=== PATIENT | female | born 1965 | race Caucasian/White ===

== ENCOUNTER → 2018-11-19 13:07 | Outpatient (CLI) | payer OTHER, SELFPAY ==
--- NOTE | 2018-11-19 13:10 | DI.MG.S_ITS ---
BILATERAL DIGITAL DIAGNOSTIC MAMMOGRAM 3D/2D: 11/19/2018 CLINICAL: Left breast lump. Comparison is made to exams dated: 02/05/2015 mammogram, 03/08/2016 mammogram, and 10/24/2017 mammogram - [facility]. The tissue of both breasts is extremely dense, which lowers the sensitivity of mammography. There is an irregular 5 mm asymmetry with a spiculated margin in the left breast at 1 o'clock posterior depth. This is seen in additional views, but not well seen on the CC view. This is more prominent and correlates as palpated. No other significant masses, calcifications, or other findings are seen in either breast. IMPRESSION: INCOMPLETE: NEEDS ADDITIONAL IMAGING EVALUATION The 5 mm irregular asymmetry in the left breast is indeterminate. An ultrasound is recommended. The patient could not stay for her scheduled ultrasound appointment immediately following the mammogram. This should be scheduled for the patient as soon as possible. The patient is aware of this recommendation. This exam was interpreted at Station ID: [id number]. NOTE: For mammograms, a report in lay terms will be sent to the patient. Approximately 15% of breast malignancies will not be visualized mammographically. In the management of a palpable breast mass, a negative mammogram must not discourage biopsy of a clinically suspicious lesion. Electronically Signed By: Lily bernal/:11/20/2018 12:17:50 letter sent: Need Ultrasound ACR BI-RADS Category 0: Incomplete 3340F
== END ==
PROVIDERS: PCP Nurse Practitioner; Visit Provider Nurse Practitioner
DX: N63.20 Unspecified lump in the left breast, unspecified quadrant (principal)
CPT/HCPCS: 77066; G0279

== ENCOUNTER → 2018-11-22 13:08 | Outpatient (CLI) | payer OTHER, SELFPAY ==
--- NOTE | 2018-11-22 13:09 | DI.US.S_ITS ---
LIMITED ULTRASOUND OF LEFT BREAST AND AXILLA: 11/22/2018 CLINICAL: Palpable left breast lump. w/ mammo abn. Comparison is made to exams dated: 11/19/2018 mammogram - [facility], 10/24/2017 mammogram, 03/08/2016 mammogram, and 02/05/2015 mammogram - [facility]. Color flow and real-time ultrasound of the left breast 1 o'clock, and axilla regions were performed. Hightower scale images of the real-time examination were reviewed. There is a 0.6 x 0.5 x 0.5 cm oval indistinct hypoechoic mass in the left breast at 1:00 position 7 cm from the nipple which demonstrates peripheral vascularity on Doppler imaging. This correlates with the patient's identified focal palpable abnormality and with findings seen on comparison diagnostic mammography. There is an adjacent 1.1 cm lymph node demonstrating borderline cortical thickening of 3 mm. No other axillary lymph nodes are identified. IMPRESSION: SUSPICIOUS OF MALIGNANCY 1) 0.6 x 0.5 x 0.5 cm oval indistinct hypoechoic mass in the left breast at 1:00 position 7 cm from the nipple correlates with the patient's identified focal palpable abnormality and is at moderate suspicion for malignancy. An ultrasound guided biopsy is recommended. 1) Adjacent 1.1 cm lymph node in the left breast at 1:00 position 7 cm from the nipple demonstrating borderline cortical thickening of 3 mm is at low suspicion for malignancy. An ultrasound guided biopsy is recommended. These results and recommendations were discussed with the patient at the time of the exam by Dr. Carrera in person. This exam was interpreted at Station ID: [id number]. Electronically Signed By: Omar Carrera M.D. ecl/:11/22/2018 14:23:17 letter sent: Biopsy Required Ultrasound BI-RADS: 4c Suspicious abnormality - moderate concern but not classic for malignancy
== END ==
PROVIDERS: PCP Nurse Practitioner; Visit Provider Nurse Practitioner
DX: R92.8 Other abnormal and inconclusive findings on diagnostic imaging of breast (principal); N63.21 Unspecified lump in the left breast, upper outer quadrant
CPT/HCPCS: 76642

== ENCOUNTER → 2018-12-05 07:38 | Outpatient (CLI) | payer OTHER, SELFPAY ==
--- NOTE | 2018-12-05 | PATH_ITS ---
[facility] Accession Number: [id number] . 01 Material submitted: . breast - LEFT BREAST MASS 1:00 7 CM FN . 01 Clinical history: . LEFT BREAST MASS . 01 Diagnosis: Left Breast Mass, 1 o'clock, 7 cm from Nipple, Core Biopsy: Invasive carcinoma, with ductal and lobular features, grade 2 of 3 ([place] combined histologic grade, total score 7/9) with the following features: - Nuclear pleomorphism: High. (3/3) - Mitotic rate: Low (1/3); see comment. - Tubular differentiation: Little or none. (3/3) - Size of invasive carcinoma: Present on multiple cores, single largest dimension of 2 mm. - Ductal carcinoma in situ: None definitively identified. - Lobular carcinoma in situ with pleomorphic features is present. - Calcifications: Present, in association with benign breast parenchyma. - Lymphatic invasion: Not definitively identified. - Prognostic markers: - Estrogen receptor status: Positive (>90% tumor cells staining; staining intensity: Moderate to Strong). - Progesterone receptor status: Positive (>95% tumor cells staining; staining intensity: Strong). - HER-2 status: Negative for protein overexpression by immunohistochemistry (1+). [facility] 12/09/2018 1825 Local . 01 Comment: The invasive carcinoma is poorly differentiated and demonstrates single cells and filing with eccentric enlarged nuclei, pleomorphism, cytoplasmic vacuolization, and prominent nucleoli. These features raise the possibility of pleomorphic invasive lobular carcinoma; however, given the focal ductular formation, the limited volume of tumor, and the focal E-cadherin immunoreactivity, the carcinoma is best interpreted as having both ductal and lobular features. The grade is at least [place] grade 2 of 3, since the limited number of high-power wayne available precludes accurate mitotic count. Better grading and classification may be performed on the excision. . 01 Electronically signed: . Iman Guzman MD, Pathologist NPI- [id number] . 01 Gross description: . Received one formalin-filled container labeled with the patient's name and labeled LT breast BX. The specimen is received with a plastic filter in container, sample loose in container and consists of multiple yellow-sanchez portions of soft tissue which range in size from 0.1 x 0.1 x 0.1 cm to 0.6 x 0.5 x 0.4 cm. The specimen is filtered and entirely submitted in one cassette. Collection date: 12/05/2018. Collection time per container: 8:45 a.m. Total fixation time: 12 hours, up to 24. ([id number]) /[facility] 12/06/2018 0311 Local . 01 Microscopic: . Predictive marker immunohistochemical studies are performed on block A1 with the invasive carcinoma showing the following results: Estrogen receptor (SP1): Positive (>90% tumor cells staining; staining intensity: Moderate to Strong). Progesterone receptor (1E2): Positive (>95% tumor cells staining; staining intensity: Strong) Her2 (4B5): Negative (1+) by immunohistochemistry. . Focal areas suspicious for lymphovascular space invasion are evaluated with D2-40 and p63 immunostains, the atypical glands of interest are not present within spaces highlighted by D2-40; hence, there is no histologic evidence of lymphatic space invasion. P63 is variably and focally weakly positive within the invasive carcinoma cells. P63 and smooth muscle myosin are lost around the invasive carcinoma, and are retained around the in-situ neoplasia. . The invasive carcinoma shows marked reduction in E-cadherin immunoreactivity; while focal membranous staining is 'beaded/dot-like' and incomplete (hence considered aberrant), in other areas, specifically where focal duct formation is present, it is linear with moderate staining intensity; hence, taken together along with the morphology of focal duct formation, the invsaive carcinoma has both ductular and lobular features. The in-situ neoplasia, which is predominantly in a pagetoid pattern, shows complete loss of E-cadherin, in support of lobular carcinoma in situ. . Internal controls for ER and OR are positive. Internal controls for ER and OR are negative; false negative results cannot be excluded. Internal controls for ER and OR are not present; false negative results cannot be excluded. Cold ischemic time is <5 minutes. The scoring criteria for breast biomarkers by immunohistochemistry is based on the ASCO/CAP guidelines (Ash AC et al J Clin Oncol 2018: 2017 10;36(20):1198-4984 and Ventura ALEX et al, Arch Pathol Lab Med 2009;134(6):907-22). Deparaffinized sections of formalin fixed tissue (along with appropriate positive controls) are incubated with the above antibody(s). Using the automated [employer] stainer, tissue is incubated with the designated antibody which is then localized by a non-biotin, dual polymer detection system. The external controls are reviewed for appropriate reactivity and found to be adequate. Results on the target cell population are indicated above. These tests have not been validated on decalcified tissue. This test was developed and its performance characteristics determined by [facility]. It has not been cleared or approved by the U.S. Food and Drug Administration. The FDA has determined that such clearance or approval is not necessary. This test is used for clinical purposes. It should not be regarded as investigational or for research. . 01 Pathologist provided ICD-10: C50.412 . 01 CPT . 154968, Q29158, W64269, 861001, 651724, 596294 Performed at: 01 [facility] [address] [place] [address] [address] [facility] [place], [place], [place] [id number] MD Russell Nguyen MD Phone: [phone]
--- NOTE | 2018-12-05 | DI.MG.S_ITS ---
UNILATERAL LEFT DIGITAL DIAGNOSTIC MAMMOGRAM POST-NEEDLE BIOPSY: 12/05/2018 CLINICAL: Left breast mass. No prior exams were available for comparison. The tissue of left breast is extremely dense, which lowers the sensitivity of mammography. There is a marker clip in the appropriate position in the left breast at 1 o'clock posterior depth. This marker clip placement is at the biopsy site. IMPRESSION: POST PROCEDURE MAMMOGRAM FOR MARKER PLACEMENT There was a successful marker clip placement in the left breast posterior depth. This exam was interpreted at Station ID: [id number]. NOTE: For mammograms, a report in lay terms will be sent to the patient. Approximately 15% of breast malignancies will not be visualized mammographically. In the management of a palpable breast mass, a negative mammogram must not discourage biopsy of a clinically suspicious lesion. Electronically Signed By: Yaw jeong/:12/05/2018 17:22:38 ACR BI-RADS Category Post-procedure mammogram for marker placement
--- NOTE | 2018-12-05 07:39 | DI.US.S_ITS ---
ULTRASOUND GUIDED BIOPSY LEFT BREAST USING VACUUM DEVICE WITH MARKING DEVICE INSERTED: 12/05/2018 CLINICAL: Left breast mass. PATIENT CONSENT: Risks (minor bleeding, infection, vasovagal reaction and repeat procedure), benefits and alternatives were explained to the patient and written informed consent was obtained. Correlation is made to exams dated: 12/05/2018 mammogram, 11/22/2018 ultrasound, 11/19/2018 mammogram - [facility], 10/24/2017 mammogram, 03/08/2016 mammogram, and 02/05/2015 mammogram - [facility]. An ultrasound guided biopsy using real-time ultrasound was performed for the indistinct irregular shaped mass located in the left breast at 1 o'clock anterior depth. The skin was prepped in the usual manner. Local anesthetic was administered to the access site. A small incision was made in the breast. The abnormality was approached from the lateral aspect. A biopsy needle was placed adjacent to the abnormality under ultrasound guidance. Once the needle was documented to be in the correct location, seven specimens were obtained using the Mammotome biopsy system. A clip was inserted into the biopsy cavity. The specimens were sent to the laboratory for pathological analysis. IMPRESSION: ULTRASOUND GUIDED BIOPSY MALIGNANT Ultrasound guided biopsy of the mass in the left breast at 1 o'clock anterior depth was successful. Pathology indicates malignant invasive mixed ductal and lobular carcinoma. Pathology results are concordant with imaging findings. A surgical/oncologic consultation is recommended. Results will be communicated to the referring clinician. This exam was interpreted at Station ID: [id number]. Yaw jeong,krmagali/:12/10/2018 21:05:10
--- NOTE | 2018-12-24 12:23 | ONC.MSW ---
Description: Initial Navigation T/C Activity: Called pt to introduce myself as the TRASHMAN/PASCALE, discuss support and resources available, as well as the process from diagnosis to initial Oncology consult visit. Pt has an appointment on Sunday, 12/30 for MRI, and has already met with Dr. Oliva. Will forward to schedulers to schedule first available ONC consult time.
== END ==
PROVIDERS: PCP Nurse Practitioner; Visit Provider Nurse Practitioner
DX: C50.412 Malignant neoplasm of upper-outer quadrant of left female breast (principal); Z17.0 Estrogen receptor positive status [ER+]
CPT/HCPCS: 19083; 77065

== ENCOUNTER → 2019-06-16 15:28 | Outpatient (CLI) | payer OTHER, SELFPAY ==
--- NOTE | 2019-06-16 15:30 | DI.RAD.S_ITS ---
PROCEDURE: XR CHEST 2V INDICATIONS: cough x5-6 wks, worsening post zpack, r/o infection TECHNIQUE: 2 views of the chest were acquired. COMPARISON: None. FINDINGS: Surgical changes and devices: None. Lungs and pleura: A large area of pulmonary consolidation is identified within the lateral aspect of the left mid lung. The aeration of the right lung is within normal limits. No effusion or pneumothorax. Mediastinum: Mediastinal contours are normal. Heart size is normal. Bones and chest wall: No suspicious bony abnormalities. Soft tissues appear unremarkable. IMPRESSION: Moderate to large left sided pneumonia. Dictated by: Osiel Chong M.D. on 06/16/2019 at 14:56 Approved by: Osiel Chong M.D. on 06/16/2019 at 15:01
== END ==
PROVIDERS: PCP Nurse Practitioner; Referring Provider Physician Assistant; Visit Provider Physician Assistant
DX: J18.9 Pneumonia, unspecified organism (principal); R05 Cough
CPT/HCPCS: 71046

== ENCOUNTER → 2019-07-14 14:31 | Outpatient (CLI) | payer OTHER, SELFPAY ==
--- NOTE | 2019-07-14 14:33 | DI.RAD.S_ITS ---
PROCEDURE: XR CHEST 2V INDICATIONS: f/u pneumonia, still sob TECHNIQUE: 2 views of the chest were acquired. COMPARISON: [facility], CR, XR CHEST 2V, 06/16/2019, 15:25. FINDINGS: Surgical changes and devices: None. Lungs and pleura: Left basilar consolidation, and small left pleural effusion with adjacent atelectasis. Worsening left perihilar consolidation. There is also new extensive right midlung consolidative opacity since the prior study No pneumothorax. Mediastinum: Mediastinal contours are normal. Heart size is normal. Bones and chest wall: No suspicious bony abnormalities. Soft tissues appear unremarkable. IMPRESSION: Worsening bilateral pneumonia, and small left pleural effusion since 06/16/19. Dictated by: Yaw Casper M.D. on 07/14/2019 at 15:08 Approved by: Yaw Casper M.D. on 07/14/2019 at 15:10
== END ==
PROVIDERS: PCP Nurse Practitioner; Referring Provider Nurse Practitioner; Visit Provider Nurse Practitioner
DX: J18.9 Pneumonia, unspecified organism (principal); J90 Pleural effusion, not elsewhere classified; R06.02 Shortness of breath
CPT/HCPCS: 71046

== ENCOUNTER → 2019-07-16 09:27 | Outpatient (CLI) | payer OTHER, SELFPAY ==
[2019-07-18 09:03] LABS: COVID19 Sendout Not Detected (Not Detected)
== END ==
PROVIDERS: PCP Nurse Practitioner; Visit Provider Family Medicine
DX: J18.9 Pneumonia, unspecified organism (principal)
CPT/HCPCS: 87635

== ENCOUNTER → 2019-07-18 13:19 | Outpatient (CLI) | payer OTHER, SELFPAY ==
--- NOTE | 2019-07-18 13:20 | DI.CT.S_ITS ---
PROCEDURE: CT CHEST WO CON INDICATIONS: worsening pneumonia. R/O mets TECHNIQUE: Noncontrast 5 mm thick sections acquired from the pulmonary apices to the posterior costophrenic angles. 1 mm lung window, 5 mm thick coronal and sagittal and 7 mm axial MIP reformats were then acquired. For radiation dose reduction, the following was used: automated exposure control, adjustment of mA and/or kV according to patient size. COMPARISON: None. FINDINGS: Image quality: Excellent. Lungs and pleura: Extensive bilateral patchy interstitial pneumonitis and more confluent airspace consolidation. Consider viral versus bacterial pneumonia. There is postradiation change in the anterior left upper lobe subjacent to the left breast. No pulmonary nodules identified. Minimal bilateral pleural effusions. Central and peripheral airways are patent and normal in caliber. Mediastinum: Heart size is normal. No pericardial effusion. No mediastinal adenopathy by size criteria. Thoracic aorta and central pulmonary arteries are normal in size. Esophagus is normal in caliber. No hiatal hernia. Bones and chest wall: No suspicious bony lesions. No acute vertebral body compression fractures. Old mild mid thoracic vertebral compression. No axillary or supraclavicular adenopathy by size criteria. Evidence of previous left breast lumpectomy. Remote left axillary node resection. Thyroid gland is unremarkable. Abdomen: Visualized upper abdominal solid organs and bowel loops appear normal in the absence of contrast. IMPRESSION: 1. Remote left lobectomy. No evidence of metastatic disease. 2. Patchy diffuse interstitial pneumonitis and patchy alveolar consolidation bilaterally. Consider viral versus bacterial pneumonia. Dictated by: Angel Ruelas M.D. on 07/18/2019 at 13:38 Approved by: Angel Ruelas M.D. on 07/18/2019 at 13:43
== END ==
PROVIDERS: PCP Nurse Practitioner; Referring Provider Internal Medicine Hematology & Oncology; Visit Provider Internal Medicine Hematology & Oncology
DX: J18.9 Pneumonia, unspecified organism (principal); C50.912 Malignant neoplasm of unspecified site of left female breast; N63.10 Unspecified lump in the right breast, unspecified quadrant
CPT/HCPCS: 71250

== ENCOUNTER → 2020-01-23 16:01 | Outpatient (CLI) | payer OTHER, SELFPAY | PROVIDERS: PCP Nurse Practitioner; Visit Provider Physician Assistant | DX: R30.0 Dysuria (principal) | CPT/HCPCS: 87077; 87086 ==

== ENCOUNTER → 2020-09-24 11:01 | Outpatient (CLI) | payer OTHER, SELFPAY ==
--- NOTE | 2020-09-24 11:02 | DI.MG.S_ITS ---
BILATERAL DIGITAL SCREENING MAMMOGRAM 3D/2D WITH CAD: 09/24/2020 CLINICAL: Routine screening. Personal history of left breast cancer. Family history of breast cancer. Comparison is made to exams dated: 10/13/2019 mammogram, 01/28/[address] mammogram - [facility], and 11/19/2018 mammogram - [facility]. The tissue of both breasts is extremely dense, which lowers the sensitivity of mammography. Current study was also evaluated with a Computer Aided Detection (CAD) system. There are benign post operative findings in the left breast. No significant masses, calcifications, or other findings are seen in either breast. There has been no significant interval change. IMPRESSION: BENIGN There is no mammographic evidence of malignancy. A 1 year screening mammogram is recommended. This exam was interpreted at Station ID: [id number]. NOTE: For mammograms, a report in lay terms will be sent to the patient. Approximately 15% of breast malignancies will not be visualized mammographically. In the management of a palpable breast mass, a negative mammogram must not discourage biopsy of a clinically suspicious lesion. Electronically Signed By: Russell redmond/alec:09/24/2020 12:07:17 letter sent: Normal Exam ACR BI-RADS Category 2: Benign Finding(s) 3342F
== END ==
PROVIDERS: PCP Nurse Practitioner; Referring Provider Nurse Practitioner; Visit Provider Nurse Practitioner
DX: Z12.31 Encounter for screening mammogram for malignant neoplasm of breast (principal); Z85.3 Personal history of malignant neoplasm of breast; Z80.3 Family history of malignant neoplasm of breast
CPT/HCPCS: 77063; 77067

== ENCOUNTER → 2021-09-28 10:09 | Outpatient (CLI) | payer OTHER, SELFPAY ==
--- NOTE | 2021-09-28 10:10 | DI.MG.S_ITS ---
BILATERAL DIGITAL SCREENING MAMMOGRAM 3D/2D WITH CAD: 09/28/2021 CLINICAL: Routine screening. Routine screening. Personal history of left breast cancer. Family history of breast cancer. Comparison is made to exams dated: 09/24/[address] [facility], 10/13/2019 mammogram, 01/28/2019 mammogram - [facility], 11/19/2018 mammogram - [facility], and 10/24/2017 mammogram - [facility]. The tissue of both breasts is extremely dense, which lowers the sensitivity of mammography. Current study was also evaluated with a Computer Aided Detection (CAD) system. There are benign post operative findings in the left breast. No significant masses, calcifications, or other findings are seen in either breast. There has been no significant interval change. IMPRESSION: BENIGN There is no mammographic evidence of malignancy. A 1 year screening mammogram is recommended. This exam was interpreted at Station ID: [id number]. NOTE: For mammograms, a report in lay terms will be sent to the patient. Approximately 15% of breast malignancies will not be visualized mammographically. In the management of a palpable breast mass, a negative mammogram must not discourage biopsy of a clinically suspicious lesion. Electronically Signed By: Ja layton/alec:09/28/2021 12:43:27 letter sent: Normal Exam ACR BI-RADS Category 2: Benign Finding(s) 3342F
== END ==
PROVIDERS: PCP Nurse Practitioner; Referring Provider Internal Medicine Hematology & Oncology; Visit Provider Internal Medicine Hematology & Oncology
DX: Z12.31 Encounter for screening mammogram for malignant neoplasm of breast (principal); Z80.3 Family history of malignant neoplasm of breast; C50.412 Malignant neoplasm of upper-outer quadrant of left female breast
CPT/HCPCS: 77063; 77067

== ENCOUNTER → 2022-06-16 10:24 | Outpatient (CLI) | payer OTHER, SELFPAY ==
--- NOTE | 2022-06-16 10:51 | DI.DEXA.S_ITS ---
Date of : 1965 Indication: postmenopausal; screening for osteoporosis; Referring Provider: MARIO KHAN Study: Bone densitometry was performed. Exam Date: June 16, 2022 Accession number: [id number] Bone Density: Region BMD T-score Z-score Classification AP Spine(L1-L4) 0.718 -3.0 -1.8 Osteoporosis Femoral Neck (Left) 0.720 -1.2 0.0 Osteopenia Total Hip (Left) 0.790 -1.2 -0.5 Osteopenia Femoral Neck (Right) 0.662 -1.7 -0.5 Osteopenia Total Hip (Right) 0.753 -1.5 -0.8 Osteopenia Total Hip Mean 0.772 -1.4 -0.7 Osteopenia World Health Organization criteria for BMD impression classify patients as: Normal (T-score at or above -1.0), Osteopenia (T-score between -1.0 and -2.5), or Osteoporosis (T-score at or below -2.5). 10-year Fracture Risk: FRAX not reported because: Some T-score for Spine Total or Hip Total or Femoral Neck at or below -2.5 Impression: The patient has osteoporosis, based on the Total Spine T-score. Discussion: INCREASED RISK OF FRACTURE. BONE DENSITY IS UNDESIRABLY LOW AT ONE OR MORE SKELETAL SITES, CONSISTENT WITH POSTMENOPAUSAL OSTEOPOROSIS. This patient's lowest T-score meets the World Health Organization's (WHO) criteria for osteoporosis at one or more sites (T-score -2.5 or below). In untreated patients, the risk of osteoporotic fracture increases approximately two-fold for each 1.0 SD decrease in T-score. Low bone density is not the only risk factor for fracture; also consider factors such as patient's age, frailty or poor health, risk of falling, risk of injury, previous osteoporotic fracture, family history of osteoporosis, cigarette smoking, low body weight, etc. Not everyone with low bone mineral density has osteoporosis; osteomalacia and other metabolic bone disorders should also be considered. Patients who have osteoporosis should be evaluated for specific diseases and conditions (secondary causes) that may cause or contribute to bone loss. The [place] [employer] Clinical Endocrinologists (AACE) and National Osteoporosis Foundation (NOF) recommend pharmacologic intervention for all postmenopausal women whose T-score is in this range. The patient should follow a healthful lifestyle (good nutrition with adequate calcium and vitamin D, and appropriate weight-bearing exercise). Follow-Up: Consider a repeat BMD and Vertebral Fracture Assessment (VFA) exam in 2 years or sooner if medically necessary, to reassess this patient's status. Reported by: CURTIS HU M.D. on 06/16/2022 11:06:00 AM.
== END ==
PROVIDERS: PCP Nurse Practitioner; Referring Provider Internal Medicine Hematology & Oncology; Visit Provider Internal Medicine Hematology & Oncology
DX: C50.919 Malignant neoplasm of unspecified site of unspecified female breast (principal); Z79.811 Long term (current) use of aromatase inhibitors; M85.88 Other specified disorders of bone density and structure, other site
CPT/HCPCS: 77080

== ENCOUNTER → 2022-09-11 10:15 | Outpatient (CLI) | payer OTHER, SELFPAY ==
--- NOTE | 2022-09-11 10:16 | DI.RAD.S_ITS ---
PROCEDURE: XR KNEE RT 3V INDICATIONS: right knee pain and crunching. TECHNIQUE: 3 views of the knee were acquired. COMPARISON: None. FINDINGS: Bones: No fractures or dislocations. No suspicious bony lesions. Soft tissues: No joint effusion. No suspicious soft tissue calcifications. IMPRESSION: Unremarkable right knee radiographs Approved by: Yaron Mullen M.D. on 09/11/2022 at 17:42
== END ==
PROVIDERS: PCP Nurse Practitioner; Referring Provider Nurse Practitioner; Visit Provider Nurse Practitioner
DX: M25.561 Pain in right knee (principal)
CPT/HCPCS: 73562

== ENCOUNTER → 2022-09-12 07:49 | Outpatient (CLI) | payer OTHER, SELFPAY ==
[2022-09-12 09:16] LABS: Add Manual Diff / Slide Review NO; Basophils Absolute Auto 0 /uL (0-100); Basophils Percent Auto 0.6 % (0-2); Eosinophils Absolute Auto 200 /uL (0-450); Eosinophils Percent Auto 2.7 % (2-4); Hemoglobin 13.7 g/dL (12.0-16.0); Lymphocytes Absolute Auto 2300 /uL (1100-4500); Lymphocytes Percent Auto 35.1 % (25-40); Mean Corpuscular HGB Conc 34.4 % (30-36); Mean Corpuscular Hemoglobin 31.5 PG (26-34); Mean Corpuscular Volume 91.8 fL (80-100); Monocytes Absolute Auto 600 /uL (0-900); Monocytes Percent Auto 8.5 % (3-14); Neutrophils Absolute Auto 3400 /uL (1500-7000); Neutrophils Percent Auto 53.1 % (50-75); Platelet Count 195 X10^3/uL (150-400); Red Blood Cell Count 4.36 X10^6/uL (4.0-5.2); Red Cell Distribution Width 12.5 % (11.6-14.8); White Blood Cell Count 6.5 X10^3/uL (4.5-11.0)
[2022-09-12 09:46] LABS: Alanine Aminotransferase 18 IU/L (<35); Albumin 4.2 g/dL (3.5-5.0); Albumin Globulin Ratio 1.7 (1.0-2.8); Alkaline Phosphatase 68 U/L (38-126); Aspartate Aminotransferase 29 IU/L (14-36); BUN Creatinine Ratio 20.8 (6-22); Bilirubin Total 0.9 mg/dL (0.2-1.3); Blood Urea Nitrogen 15 mg/dL (7-17); Calcium 9.2 mg/dL (8.4-10.2); Carbon Dioxide 25 mmol/L (22-32); Chloride 103 mmol/L (98-107); Cholesterol 172 mg/dL (140-199); Estimated Glomerular Filt Rate > 60 mL/min (>60); Globulin 2.5 g/dL (1.7-4.1); Glucose 88 mg/dL (70-100); HDL Cholesterol 62 mg/dL (40-60); HEMOLYSIS < 15 (0-50); LDL Cholesterol Calculated 93 mg/dL (<100); Potassium 4.3 mmol/L (3.4-5.1); Sodium 136 mmol/L (137-145); Total Protein 6.7 g/dL (6.3-8.2); Triglycerides 85 mg/dL (35-150)
[2022-09-12 09:59] LABS: Free T3, Triiodothyronine Free 4.21 pg/mL (2.77-5.27); Free T4, Direct Thyroxine 0.95 ng/dL (0.78-2.19)
[2022-09-12 10:13] LABS: Thyroid Stimulating Hormone 2.46 uIU/mL (0.47-4.68)
[2022-09-12 10:35] LABS: HIV 1 & 2 Ab/Ag 4th Gen Combo NEGATIVE (NEGATIVE); Hep C Virus Ab w/Reflex Quant NEGATIVE s/c (NEGATIVE)
[2022-09-12 12:20] LABS: Creatinine Urine Random 133.1 mg/dL
[2022-09-12 12:24] LABS: Microalbumi Creatinin Ratio Ur 5.2 ug/mg CR (<30); Microalbumin Urine Random 0.7 mg/dL (0-1.6)
[2022-09-14 16:07] LABS: Fecal Immunochemical Test Negative (Negative)
== END ==
PROVIDERS: PCP Nurse Practitioner; Referring Provider Nurse Practitioner; Visit Provider Nurse Practitioner
DX: Z00.00 Encounter for general adult medical examination without abnormal findings (principal); Z11.4 Encounter for screening for human immunodeficiency virus [HIV]; Z71.89 Other specified counseling; Z11.59 Encounter for screening for other viral diseases; Z12.11 Encounter for screening for malignant neoplasm of colon; N89.8 Other specified noninflammatory disorders of vagina
CPT/HCPCS: 36415; 80053; 80061; 82043; 82274; 82570; 84439; 84443; 84481; 85025; 86803; 87070; 87205; 87389

== ENCOUNTER → 2022-09-20 11:19 | Outpatient (CLI) | payer OTHER, SELFPAY ==
--- NOTE | 2022-09-20 11:20 | DI.MG.S_ITS ---
BILATERAL DIGITAL SCREENING MAMMOGRAM 3D/2D WITH CAD: 09/20/2022 CLINICAL: Routine screening. Personal history of left breast cancer. Family history of breast cancer. Comparison is made to exams dated: 09/28/2021 mammogram, 09/24/2020 mammogram - [facility], and 10/13/2019 mammogram - [facility]. Both breasts are extremely dense, which lowers the sensitivity of mammography (category d />75% glandular tissue). Current study was also evaluated with a Computer Aided Detection (CAD) system. There are benign post operative findings in the left breast. No significant masses, calcifications, or other findings are seen in either breast. There has been no significant interval change. IMPRESSION: BENIGN There is no mammographic evidence of malignancy. A 1 year screening mammogram is recommended. This exam was interpreted at Station ID: [id number]. NOTE: For mammograms, a report in lay terms will be sent to the patient. Approximately 15% of breast malignancies will not be visualized mammographically. In the management of a palpable breast mass, a negative mammogram must not discourage biopsy of a clinically suspicious lesion. Electronically Signed By: Surya winston/alec:09/20/2022 13:43:39 letter sent: Normal Exam ACR BI-RADS Category 2: Benign Finding(s) 3342F
== END ==
PROVIDERS: PCP Nurse Practitioner; Referring Provider Internal Medicine Hematology & Oncology; Visit Provider Internal Medicine Hematology & Oncology
DX: Z12.31 Encounter for screening mammogram for malignant neoplasm of breast (principal); Z85.3 Personal history of malignant neoplasm of breast; Z80.3 Family history of malignant neoplasm of breast
CPT/HCPCS: 77063; 77067

== ENCOUNTER → 2023-10-02 09:57 | Outpatient (CLI) | payer OTHER, SELFPAY ==
--- NOTE | 2023-10-02 09:58 | DI.MG.S_ITS ---
BILATERAL DIGITAL SCREENING MAMMOGRAM 3D/2D WITH CAD: 10/02/2023 CLINICAL: Routine screening. Family history of breast cancer.Breast cancer. Comparison is made to exams dated: 09/20/2022 mammogram, 09/28/2021 mammogram, and 09/24/2020 mammogram - [facility]. Both breasts are extremely dense, which lowers the sensitivity of mammography (category d />75% glandular tissue). Current study was also evaluated with a Computer Aided Detection (CAD) system. The left breast has post-operative findings. There is a possible developing oval equal density asymmetry in the left breast posterior depth lateral region seen on the craniocaudal view only. No other significant masses, calcifications, or other findings are seen in either breast. IMPRESSION: INCOMPLETE: NEEDS ADDITIONAL IMAGING EVALUATION The possible developing oval equal density asymmetry in the left breast is indeterminate. Additional views with possible ultrasound are recommended. This exam was interpreted at Station ID: [id number]. NOTE: For mammograms, a report in lay terms will be sent to the patient. Approximately 15% of breast malignancies will not be visualized mammographically. In the management of a palpable breast mass, a negative mammogram must not discourage biopsy of a clinically suspicious lesion. Electronically Signed By: Jr Singh M.D. aty/:10/02/2023 13:53:09 letter sent: Additional Imaging Needed ACR BI-RADS Category 0: Incomplete 3340F
== END ==
PROVIDERS: PCP Family Medicine; Referring Provider Family Medicine; Visit Provider Family Medicine
DX: Z12.31 Encounter for screening mammogram for malignant neoplasm of breast (principal); Z85.3 Personal history of malignant neoplasm of breast; Z80.3 Family history of malignant neoplasm of breast; R92.343 Mammographic extreme density, bilateral breasts
CPT/HCPCS: 77063; 77067

== ENCOUNTER → 2023-10-16 09:26 | Outpatient (CLI) | payer OTHER, SELFPAY ==
--- NOTE | 2023-10-16 09:27 | DI.MG.S_ITS ---
UNILATERAL LEFT DIGITAL DIAGNOSTIC MAMMOGRAM 3D/2D WITH ADDITIONAL VIEWS: 10/16/2023 CLINICAL: Additional evaluation requested from prior study. Comparison is made to exams dated: 10/02/2023 mammogram, 09/20/2022 mammogram, 09/28/2021 mammogram, and 09/24/2020 mammogram - [facility]. The left breast is extremely dense, which lowers the sensitivity of mammography (category d />75% glandular tissue). The left breast has post-operative findings. The possible developing oval asymmetry in the left breast posterior depth lateral region seen on the craniocaudal view only is not reproduced and presumably represented superimposed breast tissue. No other significant masses or calcifications are seen in the breast. IMPRESSION: NEGATIVE There is no mammographic evidence of malignancy. Return to annual mammogram screening schedule is recommended. This exam was interpreted at Station ID: [id number]. NOTE: For mammograms, a report in lay terms will be sent to the patient. Approximately 15% of breast malignancies will not be visualized mammographically. In the management of a palpable breast mass, a negative mammogram must not discourage biopsy of a clinically suspicious lesion. Electronically Signed By: Ja layton/alec:10/16/2023 10:02:00 copy to: Allyn Juarez letter sent: Normal Exam ACR BI-RADS Category 1: Negative 3341F
== END ==
PROVIDERS: PCP Family Medicine; Referring Provider Family Medicine; Visit Provider Family Medicine
DX: C50.919 Malignant neoplasm of unspecified site of unspecified female breast (principal); N64.89 Other specified disorders of breast; R92.342 Mammographic extreme density, left breast
CPT/HCPCS: 77065; G0279

== ENCOUNTER → 2024-10-03 15:16 | Outpatient (CLI) | payer OTHER, SELFPAY ==
--- NOTE | 2024-10-03 15:29 | DI.MG.S_ITS ---
MM screening mammo BI: 10/03/2024. BI-RADS: 2 CLINICAL: 59-year old female for bilateral screening mammogram. No Tyrer-Cuzick risk score calculation due to the patient's personal history of breast cancer. Patient reports a history of left breast carcinoma diagnosed at age 52. Status-post left lumpectomy with chemotherapy and hormonal therapy. Current reported family history of breast cancer: mother. PRIOR EXAMS 10/16/2023, 10/02/2023, 09/20/2022, 09/28/2021. MAMMOGRAPHY TECHNIQUE: 2D and 3D (tomosynthesis) digital mammographic views obtained, with additional images as needed for full coverage. Current study was also evaluated with a Computer Aided Detection (CAD) system. DENSITY D. The breasts are extremely dense, which lowers the sensitivity of mammography. MAMMOGRAPHY FINDINGS Right: No suspicious mass, asymmetry, microcalcification, or other abnormality seen. Left: Benign-appearing post-surgical changes noted on the left. There are no suspicious masses, calcifications, or other findings in the breast. IMPRESSION: Right * No evidence of malignancy. Left * No evidence of malignancy with benign findings. RECOMMENDATIONS Bilateral * Annual screening mammography. OVERALL ASSESSMENT CATEGORY BI-RADS-2: Benign. The [employer] recommends annual screening mammography beginning at age 40 for women with average risk of breast cancer. ELECTRONICALLY SIGNED: Christine London M.D. on 10/05/2024 at 01:22:44 AM PT Interpreting Station ID: [id number]
== END ==
LOC: MAMMO 15:18
PROVIDERS: PCP Family Medicine; Referring Provider Family Medicine; Visit Provider Family Medicine
DX: Z12.31 Encounter for screening mammogram for malignant neoplasm of breast (principal); Z85.3 Personal history of malignant neoplasm of breast; Z80.3 Family history of malignant neoplasm of breast; R92.343 Mammographic extreme density, bilateral breasts
CPT/HCPCS: 77063; 77067

== ENCOUNTER → 2024-11-04 07:39 | Outpatient (CLI) | payer OTHER, SELFPAY ==
[2024-11-04 10:00] LABS: Cholesterol 188 mg/dL (140-199); HDL Cholesterol 57 mg/dL (40-60); Triglycerides 112 mg/dL (35-150)
[2024-11-05 08:11] LABS: CRP, High Sensitivity 0.40 mg/L (0.00-3.00)
== END ==
PROVIDERS: PCP Family Medicine; Referring Provider Family Medicine; Visit Provider Family Medicine
DX: Z13.220 Encounter for screening for lipoid disorders (principal); Z13.6 Encounter for screening for cardiovascular disorders
CPT/HCPCS: 36415; 80061; 86140